=== PATIENT | male | born 1990 | race Caucasian/White ===

== ENCOUNTER 2017-08-07 11:42 | Emergency (ER) | payer SELFPAY ==
[2017-08-07] MEDS ORDERED: Ondansetron ODT 4 MG TAB ONE (12:15)
[2017-08-07] MEDS ORDERED: Ketorolac Tromethamine 30 MG/ML VIAL ONE (12:26)
[2017-08-07 12:36] LABS: #Lymphocytes 1.8 thou/uL (1.20-3.40); #Neutrophils 11.2 thou/uL (1.40-6.50); %Basophils 0.3 % (0.0-1.0); %Eosinophils 0.2 % (0.0-10.0); %Lymphocytes 12.8 % (21.0-51.0); %Monocytes 7.3 % (0.0-10.0); %Neutrophils 79.3 % (42.0-75.0); Hemoglobin 16.7 g/dL (14.0-18.0); Mean Corpuscular HGB CONC 34.8 g/dL (32.0-36.0); Mean Corpuscular Hemoglobin 30.5 pg (27.0-31.0); Mean Corpuscular Volume 87.5 fl (80.0-94.0); Mean Platelet Volume 7.6 fL (7.4-10.4); Platelet Count 223 thou/uL (130-400); RBC Distribution Width 11.7 % (11.5-14.5); Red Blood Cell (RBC) Count 5.48 mill/uL (4.70-6.10); White Blood Cell (WBC) Count 14.1 thou/uL (4.8-10.8)
[2017-08-07 12:51] LABS: ALT (SGPT) 21 U/L (8-55); AST (SGOT) 19 U/L (5-34); Albumin 4.3 g/dL (3.5-5.0); Alkaline Phosphatase 105 U/L (40-150); Anion Gap 16 mmol/L (10-20); BUN (Urea Nitrogen) 7 mg/dL (8.9-20.6); Bilirubin, Total 0.8 mg/dL (0.2-1.2); Calc. Creatinine Clearance 0 mL/min (70-130); Calcium 9.8 mg/dL (7.8-10.44); Carbon Dioxide 24 mmol/L (22-29); Chloride 102 mmol/L (98-107); Estimated GFR-MDRD Greater than 90; Globulin 3.4 g/dL (2.4-3.5); Glucose 102 mg/dL (70-105); Potassium 3.7 mmol/L (3.5-5.1); Protein, Total 7.7 g/dL (6.0-8.3); Sodium 138 mmol/L (136-145)
[2017-08-07] MEDS ORDERED: metroNIDAZOLE 500 MG/100 ML BAG ONE (13:37)
[2017-08-07] MEDS ORDERED: cefTRIAXone\\ROCEPHIN 1 GM VIAL ONE (13:37)
[2017-08-07] MEDS ORDERED: Meropenem 1 GM in Sodium Chloride 0.9% 100 ML IVPB SCH (14:00)
--- NOTE | 2017-08-07 14:38 | CT ---
CT OF ABDOMEN AND PELVIS PERFORMED WITH IV CONTRAST ENHANCEMENT: Date: 08/07/17 HISTORY: Pain and swelling in rectum region. FINDINGS: The lung bases are clear. The liver and spleen show no focal abnormalities. The pancreas and gallbladder regions are unremarkab le. Right and left adrenal glands, and right and left kidneys are normal in size. There is no significant periaortic adenopathy. There are small mesenteric lymph nodes seen. These are slightly more prominen t in the ileocolic region, but nonspecific. CT of pelvis was performed with contrast enhancement. The appendix is normal in size and appearance. No evidence of adenopathy, mass, or free fluid. Rectal contrast was performed for this examination. I do not see a definite perirectal abscess. I do not appreciate any significant inflammatory change. T he very lower portion of the anus is not included on this exam. There is some questionable minimal ri ght-sided fat stranding present. IMPRESSION: Question of some minimal fat stranding in the perianal region without signs of abscess. No acute intr a-abdominal abnormalities. POS: [facility]
[2017-08-07] MEDS ORDERED: ISOVUE-370 76%-LOCM 1 ML ONE (16:43)
[2017-08-07] MEDS ORDERED: Iopamidol 370 76% 50 ML VIAL FS ONE (16:43)
== END 2017-08-07 15:24 | disposition home or self-care (01) ==
LOC: ERS 11:42
DX: K61.1 Rectal abscess (principal); F17.210 Nicotine dependence, cigarettes, uncomplicated
CPT/HCPCS: 36415; 74177; 80053; 83605; 85025; 87040; 87149; 96361; 96365; 96367; 96375; J0696; J1885; J2185; J2270; J7050; Q0162